=== PATIENT | male | born 1945 | race Caucasian/White ===

== ENCOUNTER 2021-06-24 11:17 | Emergency (ER) | payer MEDICARE, OTHER ==
[~2021-06-24] VITALS: Ht 175.3 cm; Wt 81.6 kg
--- NOTE | 2021-06-24 12:04 | NUR ---
PT IS IN ROOM #2A. DR PINK EVALUATED THE PT.
[2021-06-24] MEDS ORDERED: AZITHROMYCIN IV 500 MG in IV DEXTROSE 5% 250 ML IV ONE (12:15)
[2021-06-24] MEDS ORDERED: CEFTRIAXONE 1 G in IV DEXTROSE 5% 50 ML IV ONE (12:15)
[2021-06-24 12:17] LABS: ABG BASE EXCESS 0.8 mmol/L; ABG HCO3 23.5 mmol/L; ABG PCO2 31.7 mmHg (35.0-45.0); ABG PH 7.488 (7.350-7.450); ABG PO2 63.5 mmHg (75.0-100.0); ABG SITE RIGHT RADIAL; ABG TOTAL HEMOGLOBIN 12.8 G/dL (13.5-18.0); COHb 0.3 % (0.5-1.5); MetHb 0.1 % (0.0-1.5); O2Hb 92.2 % (94.0-97.0); VENT MODE Room Air
[2021-06-24 12:24] LABS: HEMATOCRIT 36.6 % (36.7-47.1); MEAN CORPUSCULAR HEMOGLOBIN 28.6 uug (23.8-33.4); MEAN CORPUSCULAR VOLUME 85.3 fL (73.0-96.2); PLATELET COUNT (AUTO) 474 K/uL (152-348)
[2021-06-24 12:44] LABS: ALANINE AMINOTRANSFERASE 84 U/L (16-63); ALKALINE PHOSPHATASE 99 U/L (50-136); ASPARTATE AMINOTRANSFERASE 40 U/L (15-37); BILIRUBIN,DIRECT 0.3 mg/dL (0.0-0.2); BILIRUBIN,TOTAL 0.8 mg/dL (0.2-1.0); CARBON DIOXIDE 26 mmol/L (21-32); CHLORIDE 100 mmol/L (98-107); CREATININE 0.8 mg/dL (0.6-1.3); POTASSIUM 3.5 mmol/L (3.5-5.1); TOTAL PROTEIN, SERUM 6.4 g/dL (6.4-8.2); UREA NITROGEN, BLOOD 30 mg/dL (7-18)
[2021-06-24 12:46] LABS: ETHANOL < 3 MG/DL (0-0)
[2021-06-24] MEDS ORDERED: CEFTRIAXONE /D5W 50ML IVPB **ER PYXIS IV ONE (12:46)
[2021-06-24] MEDS ORDERED: AZITHROMYCIN 500MG/ D5W 250ML IVPB **ER PYXIS ONLY IV ONE (12:46)
[2021-06-24 12:47] LABS: GLUCOSE 310 mg/dL (74-106)
[2021-06-24 13:07] LABS: THYROID STIMULATING HORMONE 0.987 mIU/mL (0.358-3.740)
[2021-06-24] MEDS ORDERED: DEXAMETHASONE SOD PHOSPHATE 4 MG INJ IV ONE (14:15)
[2021-06-24] MEDS ORDERED: DEXAMETHASONE SOD PHOSPHATE 10 MG INJ ONE (14:54)
--- NOTE | 2021-06-24 19:23 | NUR ---
Pt awake alert speaks very minimal Hungarian, speaks [place] language. Pt was provided dinner tray.
[2021-06-24] MEDS ORDERED: CHOLECALCIFEROL 1,000 UNIT TABLET PO SCH (22:30)
--- NOTE | 2021-06-24 23:42 | NUR ---
call to [facility] for Jovani Zelaya for admitting orders, DR. Frazier from day shift spoke with him. There are no orders for admitting as of yet.
--- NOTE | 2021-06-25 00:03 | NUR ---
pt has been up to urinate at side of gourney several times with assist, pt denies dizziness or sob when standing up.
[2021-06-25] MEDS ORDERED: DEXA6TAB6 PO (01:27)
[2021-06-25] MEDS ORDERED: ENOX40DI SQ (01:27)
[2021-06-25] MEDS ORDERED: AZIT250T13 PO (01:27)
--- NOTE | 2021-06-25 02:09 | NUR ---
Patient discharged to home in stable condition. Written and verbal after care instructions given. Patient verbalizes understanding of instructions. Stressed follow up or return to ER for worsening s/s. pt discharged via w/c accompanied by patients daughter.
[2021-06-25 02:10] VITALS: BP 110/74
== END 2021-06-25 02:10 | disposition home or self-care (01) ==
LOC: ER 11:17
DX: U07.1 COVID-19 (principal); J12.82 Pneumonia due to coronavirus disease 2019; R09.02 Hypoxemia; R79.1 Abnormal coagulation profile; E11.9 Type 2 diabetes mellitus without complications; J45.909 Unspecified asthma, uncomplicated; R79.82 Elevated C-reactive protein (CRP); D64.9 Anemia, unspecified; D75.839 Thrombocytosis, unspecified; R00.0 Tachycardia, unspecified
CPT/HCPCS: 36415; 36600; 71045; 80048; 80076; 80320; 82009; 83605; 83615; 83880; 84145; 84443; 84484; 85025; 85379; 85730; 86140; 87040 ×2; 87400; 87426; 93005; 96365; 96366; 96367; 99291; J0456; J0696; J1100; 70030-TC; A4663; G0480